=== PATIENT | male | born 1970 | race Caucasian/White ===

== ENCOUNTER 2018-12-21 09:39 | Outpatient (CLI) | payer OTHER | END 2018-12-21 09:40 | disposition home or self-care (01) | LOC: C.USIC 09:39 ==

== ENCOUNTER 2018-12-22 09:21 | Outpatient (CLI) | payer OTHER | END 2018-12-22 09:22 | disposition home or self-care (01) | LOC: C.CTH 09:21 | DX: C64.1 Malignant neoplasm of right kidney, except renal pelvis (principal) ==

== ENCOUNTER 2018-12-24 10:24 | Outpatient (CLI) | payer OTHER | END 2018-12-24 10:25 | disposition home or self-care (01) | LOC: C.CTH 10:24 | DX: C64.1 Malignant neoplasm of right kidney, except renal pelvis (principal) ==